=== PATIENT | female | born 1995 | race Caucasian/White ===

== ENCOUNTER 2018-05-31 17:13 | Emergency (ER) | payer OTHER ==
[~2018-05-31] VITALS: Ht 157.5 cm; Wt 68.0 kg
[2018-05-31 17:21] VITALS: BP_SYST 125
[2018-05-31] MEDS ORDERED: LORazepam 1 MG TABLET PO ONE (19:15)
== END 2018-05-31 19:28 | disposition home or self-care (01) ==
LOC: SED 17:13
DX: H10.211 Acute toxic conjunctivitis, right eye (principal); R03.0 Elevated blood-pressure reading, without diagnosis of hypertension; Z88.0 Allergy status to penicillin
CPT/HCPCS: 99283; J7030